=== PATIENT | female | born 1960 | race Caucasian/White ===

== ENCOUNTER → 2016-06-16 08:51 | Outpatient (CLI) | payer MEDICAID ==
[2011-02-10 13:13] VITALS: BMI 26.5
== END | disposition home or self-care (01) ==
LOC: D.RAD 08:00
DX: C34.32 Malignant neoplasm of lower lobe, left bronchus or lung (principal)

== ENCOUNTER → 2016-09-14 05:25 | Day surgery (SDC) | payer MEDICAID ==
[~2016-09-14] VITALS: Ht 154.9 cm; Wt 63.5 kg
[~2016-09-14 05:25] MED LIST: ASPIRIN EC81 M1 PO; CALCIUM 500 +1 EAC3 PO; DECADRON4 MG PO; FISH OIL 1,0001 CA1 PO; FOLIC ACID0.8 MG PO; LIDODERM 5 %1 PATCH TRANSDERM; MIRAPEX0.5 MG PO; MULTIPLE VITAMI1 TA1 PO; NYSTATIN ORAL SU5 ML PO; OXYCODONE HCL10 MG PO; PRILOSEC10 M1 PO; VALIUM5 MG PO; VITAMIN B-121000 MCG PO; VITAMIN D31000 UNIT PO; VITAMIN E1000 UNI1 PO
[2016-09-14 06:36] LABS: BASOPHILS 0.1 % (0-2); EOSINOPHILS 0 % (0-7); HEMATOCRIT 42.5 % (36.0-48.0); HEMOGLOBIN 14.7 g/dL (12-16); IMMATURE GRANULOCYTES 4.8 % (0-5); LYMPHOCYTES 17.2 % (15-50); MCH 30.9 pg (26.0-34.0); MCHC 34.6 g/dL (31.0-37.0); MCV 89.5 fL (80.0-100.0); MEAN PLATELET VOLUME 10.5 fL (7.4-10.4); MONOCYTES 6.2 % (2-11); NEUTROPHILS 71.7 % (40-80); RBC 4.75 10x6/uL (4.00-5.40); RDW 12.7 % (11.5-14.5); WBC 14.9 10x3/uL (4.8-10.8)
[2016-09-14 06:37] LABS: PLATELET COUNT 252 10x3/uL (130-400)
[2016-09-14 06:45] LABS: CALC OSMOLALITY 285 mosm/kg (275-300); CALCIUM 8.7 mg/dL (8.5-10.1); CARBON DIOXIDE 28.2 mmol/L (21.0-32.0); CHLORIDE - SERUM 102 mmol/L (98-107); CREATININE - SERUM 0.8 mg/dL (0.6-1.3); GLUCOSE 122 mg/dL (74-106); POTASSIUM - SERUM 5.2 mmol/L (3.5-5.1); SODIUM 139 mmol/L (136-145); UREA NITROGEN 33 mg/dL (7-18); eGFR NON AFRICAN AMERICAN 78 mL/min (90-120)
[2016-09-14 06:57] LABS: INR 2.87 (0.85-1.17); PROTIME 30.3 SECONDS (11.6-15.0)
[2016-09-14 06:58] LABS: APTT 20.4 SECONDS (22.8-39.4)
[2016-09-14 07:02] VITALS: BP 114/74; Ht 154.9 cm; Wt 63.5 kg
--- NOTE | 2016-09-14 11:25 | NUR ---
NOTIFIED ANETHESIA REGARDING ELEVATED BLOOD PRESSURE. GIVEN VERBAL PER DR. HALE TO GIVEN HYDRALAZINE 5MG EVERY FIVE MINUTES UP TO 20MG.
--- NOTE | 2016-09-14 12:56 | NUR ---
1250-PT. LEFT, ESCORTED VIA WHEELCHAIR TO PERSONAL CAR, LEFT WITH NEIGHBOR DRIVING.
--- NOTE | 2016-09-18 15:46 | OP ---
PATIENT NAME: LEILANI OLIVAREZ MEDICAL RECORD: [id number] :58 LOCATION:[facility] ADMISSION DATE: SURGEON: TETO EID MD DATE OF OPERATION: 09/14/2016 PREOPERATIVE DIAGNOSIS: Brain cancer. POSTOPERATIVE DIAGNOSIS: Brain cancer. PROCEDURE: 1. Placement of left infraclavicular PowerPort under fluoroscopic guidance via a cephalic vein cutdown. 2. Immediate surgeon interpretation of the fluoroscopic images. SURGEON: Teto Eid M.D. EAR MACHINE OPERATOR: None. BLOOD LOSS: Minimal. ANESTHESIA: General. COMPLICATIONS: None. The risks, possible complications and alternatives to procedure were explained to the patient. She elects to proceed. No radiologist was present for this procedure. Static fluoroscopic images were obtained and placed in the patient's chart. The surgeon interpretation of the fluoroscopic images is dictated within the body of this operative note. OPERATIVE COURSE: The patient was conveyed to the operating room electively on 09/14/16. General anesthesia was induced by the anesthesia staff. The left chest was sterilely prepped and draped. A transverse incision was accomplished inferior to the left clavicle. Sharp dissection was carried down to the level of the pectoralis fascia. A subcutaneous pocket was created bluntly in caudad direction. I then excised some of the subcutaneous adipose tissue from beneath the flap in order to allow for easier access of the port. I dissected in the deltopectoral groove. A cephalic vein was identified. Two ties were placed on the cephalic vein laterally. A loose tie was placed medially. A small venotomy was accomplished. Utilizing the vein pick I then advanced the PowerPort catheter. Under fluoroscopy, the PowerPort catheter was advanced to the cavoatrial junction. The catheter was shortened. It was attached to the PowerPort. The locking device was firmly engaged. The medial tie was tied down. A secondary tie was placed around the catheter medially. The cephalic vein was divided between the sets of ties. The port was placed in the subcutaneous pocket. It was sutured with 3-point fixation to the underlying pectoralis fascia with 3-0 Prolenes. I accessed the port. It accessed easily. It aspirated dark, nonpulsatile blood and also flushed easily as well. I irrigated in the port pocket. The subdermis was approximated with interrupted 3-0 Vicryls. The skin was approximated with a running intracuticular 3-0 Vicryl. Benzoin and Steri-Strips were applied. The patient was then extubated and conveyed to post-anesthesia care unit where OPERATIVE REPORT [id number] JUANISLEILANI IRENE she was in stable condition. She will be dismissed home on hydrocodone for pain. TRANSINT:[id number] Voice Confirmation ID: [id number] DOCUMENT ID: [id number] TETO EID MD at 1546 CC: TORRES CARRIZALES MD and TOVA HARTMAN MD [id number] DICTATION DATE: 09/14/16 1137 BALLET DANCER: 09/14/16 2157 [facility] 09/14/16 [id number] [place] [address]
== END | disposition home or self-care (01) ==
LOC: D.OPS 05:25 → D.PAN 08:00 → D.OPS 08:00
PROVIDERS: Anesthesiology
DX: C71.9 Malignant neoplasm of brain, unspecified (principal); Z01.812 Encounter for preprocedural laboratory examination

== ENCOUNTER 2017-10-11 15:20 | Observation (INO) | payer MEDICAID ==
[~2017-10-11] VITALS: Ht 154.9 cm; Wt 55.0 kg
--- NOTE | ~2017-10-11 | CN ---
PATIENT NAME:LEILANI OLIVAREZ MEDICAL RECORD: [id number] : 58 LOCATION:. D.2126 ADMIT DATE: 10/11/17 ACCOUNT: [id number] CONSULTING PHYSICIAN: RUFINA PEACOCK MD REFERRING PHYSICIAN: LIZA HUMPHREY MD DATE OF CONSULTATION: 10/12/2017 HISTORY OF PRESENT ILLNESS: A 57-year-old female with a family history of coronary artery disease, previous history of smoking, has been having chest tightness, pressure with exertion, suspicious for angina including the patient's mother on wheelchair, walking up inclines, admitted with accelerated angina. We are asked to see her concerning her cardiovascular status. PAST MEDICAL HISTORY: Includes: 1. History of gastroesophageal reflux disease. 2. Chronic pain. MEDICATIONS: Include Nicoderm 21 mg 24 hours, aspirin 81 every day, Valium 5 mg b.i.d. p.r.n., Mirapex 0.5 q.h.s., Ambien 10 q.h.s. p.r.n., oxycodone 5 mg q.i.d. SOCIAL HISTORY: Previous smoker. No set exercise program. Helps take care of mother and father, currently living with the sister. REVIEW OF SYSTEMS: The patient reports easy bruising but reports no swollen glands. The patient reports no fever, no night sweats, no significant weight gain, no significant weight loss. No significant exercise tolerance. The patient reports no dry eyes, no irritation, no vision change. Patient reports no difficulty hearing and no ear pain. Patient reports no frequent nose bleeds or nose and sinus problems. Patient reports on arm pain on exertion. No shortness of breath while lying down. No history of heart murmur. Patient reports no cough, no wheezing or coughing up blood. Patient reports no abdominal pain, no vomiting. Normal appetite. No diarrhea and not vomiting blood. No nausea and no constipation. Patient reports no incontinence. No difficulty urinating. No hematuria. No increased frequency. Patient reports no muscle aches. No weakness, no arthralgias, no back pain. No swelling of the extremities. Patient reports no abnormal mole, no jaundice, no rashes. Reports no loss of consciousness. No weakness and no numbness. No seizures, dizziness, or headaches. The patient reports no depression, no sleep disturbance, feeling safe in a relationship and no alcohol abuse. Patient reports on fatigue. Reports no runny nose or sinus pressure. No itching, no hives, and no frequent sneezing. PHYSICAL EXAMINATION: GENERAL: Pleasant female in no acute distress, appears stated age. VITAL SIGNS: Blood pressure 174/74, pulse 80 and regular. HEENT: Normocephalic, atraumatic. NECK: No bruits noted. HEART: Regular with I-II/ systolic ejection murmur. LUNGS: Good air excursion. ABDOMEN: Soft, nontender. EXTREMITIES: Pulses are well preserved, 2+ with no edema. NEUROLOGIC: Grossly intact. DIAGNOSTIC DATA: ECG without acute changes. CONSULT REPORT [id number] LEILANI OLIVAREZ IMPRESSION: Accelerated angina. PLAN: Angiography intervention based on above. TRANSINT:[id number] Voice Confirmation ID: [id number] DOCUMENT ID: [id number] RUFINA PEACOCK MD at 1449 CC: [id number] DICTATION DATE: 10/12/17 1051 PRESCHOOL ADVISER: 10/12/17 1137 DIS IN 10/12/17 [id number] [place] [address]
--- NOTE | ~2017-10-11 | OP ---
PATIENT NAME: LEILANI OLIVAREZ MEDICAL RECORD: [id number] :58 LOCATION:D.M2 D.2126 ADMISSION DATE:10/11/17 SURGEON: RUFINA PEACOCK MD DATE OF OPERATION: 10/12/2017 PROCEDURE: Left heart catheterization, selective coronary angiography, right femoral artery approach. CATHETERS: A 5-Micronesian sheath, 5/4 left and right Simran, 5/4 pig. The procedure was well tolerated. The patient was returned to [facility]. Sheath removed. ExoSeal device placed. FINDINGS: Left ventriculography in 30-degree RODRIGUEZ view: Normal wall motion, normal systolic function. CORONARY ANATOMY: LEFT MAIN: Left main is free of disease. LAD: Free of disease in the diagonal system. CIRCUMFLEX: Free of disease in the marginal system. RIGHT CORONARY ARTERY: Dominant artery, gives rise to PDA, free of disease. IMPRESSION: Normal LV systolic function. Normal coronary anatomy. TRANSINT:[id number] Voice Confirmation ID: [id number] DOCUMENT ID: [id number] RUFINA PEACOCK MD at 1449 CC: [id number] DICTATION DATE: 10/12/17 1052 OFFICE CORRESPONDENT: 10/12/17 1231 DIS IN 10/12/17 [facility] [address] [place] [address]
--- NOTE | ~2017-10-11 | HEMODYNAMI ---
PATIENT:LEILANI OLIVAREZ MEDICAL RECORD: [id number] : 58 LOCATION:[address] ADMISSION DATE: 10/11/17 Generatedon:10/12/201710:43 Patient name: LEILANI OLIVAREZ Patient #: [id number] SSN: : 1960 Date of study: 10/12/2017 Page: Of Hemodynamic Procedure Report Patient Data Patient Demographics Procedure consent was obtained First Name: LEILANI Gender: Female Last Name: JUANIS : 1960 [facility] Initial: BONILLA Age: 57 year(s) Patient #: [id number] Race: Unknown Additional ID: [id number] Contact details Address: [address] [place] [address] State: [place] City: [place] Zip code: [address] Admission Admission Data Admission Date: 10/11/2017 Admission Time: 20:04 Admit Source: Other Room #: D.2126 Lab Results Lab Result Date: 10/12/2017 Lab Result Time: 4:30 Biochemistry Name Units Result Min Max BUN mg/dl 22 --(----)-* 7 18 Creatinine mg/dl 0.8 --(-*--)-- 0.6 1.3 CBC Name Units Result Min Max Hematocrit % 38.2 *-(----)-- 42 54 Hemoglobin g/dl 12.8 -*(----)-- 13.5 17.5 Procedure Procedure Types Cath Procedure Diagnostic Procedure [facility] w/Coronaries Procedure Description Procedure Date Procedure Date: 10/12/2017 Procedure Start Time: 10:30 Procedure End Time: 10:38 Procedure Staff Name Function Reji Cespedes MD Performing Physician Harris Trinidad RT Monitor Eris Amos RT Scrub Mehul Rudd RN Nurse Procedure Data Cath Procedure Fluoroscopy Diagnostic fluoroscopy Total fluoroscopy Time: 1.2 time: 1.2 min min Diagnostic fluoroscopy Total fluoroscopy dose: 272 dose: 272 mGy mGy Contrast Material Contrast Material Type Amount (ml) Isovue 300 65 Entry Location Entry Primary Successful Side Size Upsize Upsize Entry Closure Succes sful Closure Location (Fr) 1 (Fr) 2 (Fr) Remarks Device Remarks Femoral Right 5 Fr Exoseal artery Estimated blood loss: 10 ml Diagnostic catheters Device Type Used For End Catheter Placement MULTIPACK JL 4.0 5Fr Procedure catheter MULTIPACK 3DRC 5Fr Procedure catheter MULTIPACK Pigtail 5 Fr Procedure catheter Procedure Complications No complications Procedure Medications Medication Administration Route Dosage Oxygen etCO2 Nasal cannula 2 l/min Lidocaine 2% added to field 20 Heparin Flush Bag added to field 2 bags (1000units/500ml NS) 0.9% NaCl I.V. 100 ml/hr Versed I.V. 2 mg Fentanyl I.V. 100 mcg Versed I.V. 1 mg Fentanyl I.V. 50 mcg Versed I.V. 1 mg Hemodynamics Rest HGB: 12.8 (g/dl) Heart Rate: 86 (bpm) Pressure Samples Time Site Value (mmHg) Purpose Heart Use Rate(bpm) 10:35 LV 103/8,7 Snapshot 83 Gradients Valve Time Site Site Mean SEP/DFP Peak To Heart Use 1 2 (mmHg) (sec/min) Peak Rate (mmHg) (bpm) Aortic 10:35 LV AO 82 Snapshots Pre Cath Intra NCS Post Cath Vital Signs Time Heart Resp SPO2 etCO2 NIBP (mmHg) Rhythm Pain Sedation Rate (ipm) (%) (mmHg) Status Level (bpm) 10:15:00 85 14 100 14.9 132/75(101) NSR 0 (11) 10(A) , No pain 10:19:12 83 11 100 15.7 111/72(99) NSR 0 (11) 10(A) , No pain 10:23:16 80 16 100 32.2 113/71(94) NSR 0 (11) 10(A) , No pain 10:27:20 70 18 100 35.2 113/71(90) NSR 0 (11) 10(A) , No pain 10:31:27 73 13 99 17.2 100/62(78) NSR 0 (11) 9(A) , No pain 10:35:27 79 24 97 0 98/72(91) NSR 0 (11) 9(A) , No pain 10:41:40 84 29 98 28.4 107/72(91) NSR 0 (11) 10(A) , No pain Medications Time Medication Route Dose Verified Delivered Reason Notes Eff ectiveness by by 10:22:13 Oxygen etCO2 2 Reji Buffie used for Nasal l/min Coy Rudd horseradish maker cannula 10:22:19 Lidocaine 2% added 20ml Reji Reji for local to vial [facility] anesthetic field MD PERALTA 10:22:26 Heparin Flush added 2 Reji Reji used for Bag to bags [facility] procedure (1000units/500ml field MD PERALTA NS) 10:22:33 0.9% NaCl I.V. 100 Reji Buffie Per ml/hr Phoenix Rudd RN physician 10:28:07 Versed I.V. 2 mg Reji Buffie for Coy Rudd RN sedation 10:28:13 Fentanyl I.V. 100 Reji Buffie for mcg Coy Rudd RN sedation 10:31:20 Versed I.V. 1 mg Reji Buffie for Coy Rudd RN sedation 10:31:23 Fentanyl I.V. 50 Reji Buffie for mcg Coy Rudd RN sedation 10:34:53 Versed I.V. 1 mg Reji Buffie for [facility] RN sedation Procedure Log Time Note 9:48:36 Informed consent obtained and on chart 9:48:39 Admit Source: Other 9:48:52 Diagnostic Cath status Elective 9:48:54 Eris Amos RT(R) sent for patient. Start room use. 9:48:54 Time tracking: Regular hours (M-F 7:00 - 5:00) 9:48:57 Plan of Care:Hemodynamics will remain stable., Cardiac rhythm will remain stable., Comfort level will be maintained., Respiratory function will remain adequate., Patient/ family verbilizes understanding of procedure., Procedure tolerated without complication., Recovers from procedure without complications.. 9:49:10 H&P Date Dictated: 10/11/2017 Within 30 days and on chart.. 9:49:38 Lab Result : BUN 22 mg/dl 9:49:38 Lab Result : Creatinine 0.8 mg/dl 9:49:38 Lab Result : Hemoglobin 12.8 g/dl 9:49:38 Lab Result : Hematocrit 38.2 % 9:49:40 Lab results completed and on chart. 10:08:44 Patient received from PCU to CCL 2 Alert and oriented. Tansferred to table in Supine position. 10:13:53 Warm blankets applied, and marge hugger turned on for patient comfort. 10:13:53 Correct patient and procedure confirmed by team. 10:13:54 ECG and BP/O2 sat monitors applied to patient. 10:13:55 Vital chart was started 10:13:56 Baseline sample Acquired. 10:13:59 Rhythm: sinus rhythm 10:14:01 Full Disclosure recording started 10:14:03 Pre-procedure instructions explained to patient. 10:14:04 Pre-op teaching completed and patient verbalized understanding. 10:14:07 Family unavailable. 10:14:08 Patient NPO since Midnight. 10:19:34 Is the patient allergic to Iodine/contrast media? No. 10:19:36 Is patient on blood thinner?No 10:19:40 Patient diabetic? No. 10:19:44 Previous problem with sedation/anesthesia? No ? 10:19:47 Snore? Yes 10:19:49 Sleep apnea? No 10:19:50 Deviated septum? No 10:19:51 Opens mouth fully? Yes 10:19:52 Sticks out tongue? Yes 10:19:54 Airway obstruction? 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 10:19:57 Dentures? No ? 10:20:44 Pre procedure: right dorsailis pedis pulse 1+ Palpable, but thready & weak; easily obliterated 10:20:59 Unable to palpate radial pulse. 10:21:02 Patient pain scale 0/10 ?. 10:21:08 IV patent on arrival in port with 0.9% NaCl at [facility]. 10:21:12 Right groin area was prepped with chlora-prep and draped in sterile fashion 10:22:13 Oxygen 2 l/min etCO2 Nasal cannula was administered by Mehul Rudd RN; used for procedure; 10:22:19 Lidocaine 2% 20ml vial added to field was administered by Reji Cespedes MD; for local anesthetic; 10:22:26 Heparin Flush Bag (1000units/500ml NS) 2 bags added to field was administered by Reji Cespedes MD; used for procedure; 10:22:33 0.9% NaCl 100 ml/hr I.V. was administered by Mehul Rudd RN; Per physician; 10:26:23 Alarms reviewed by R. N. 10::24 Sharps counted by scrub and verified by R.N. 10:: --------ALL STOP TIME OUT------ 10::27 Final Timeout: patient, procedure, and site verified with staff and physician. All members of the team are in agreement. 10:26:29 Right groin site verified by team. 10::31 Physical assessment completed. ASA score P 2 - A patient with mild systemic disease as per Reji Cespedes MD. 10:26:35 Sedation plan: IV Moderate Sedation Medication:Versed, Fentanyl 10:28:07 Versed 2 mg I.V. was administered by Mehul Rudd RN; for sedation; 10:28:13 Fentanyl 100 mcg I.V. was administered by Mehul Rudd RN; for sedation; 10:28:31 Use device set Femoral Dx 10:28:34 PERCUTANEOUS ENTRY 19GA needle opened to sterile field. 10:28:35 Tegaderm 4 x 4 (1626W) opened to sterile field. 10:28:36 ACIST Manifold (11094) opened to sterile field. 10:28:37 ACIST Hand Control (36113) opened to sterile field. 10:28:39 ACIST Syringe (39611) opened to sterile field. 10:28:40 Bag Decanter (2002) opened to sterile field. 10:28:40 Medline Cath Pack ([id number]) opened to sterile field. 10:28:41 DIAGNOSTIC WIRE .035 260cm J wire (611131) opened to sterile field. 10:28:42 DIAGNOSTIC Multipack 5Fr catheter set (QU3571) opened to sterile field. 10:28:43 SHEATH Prelude 5Fr 0.035 (ACY-3L-05-035) opened to sterile field. 10:29:14 Procedure started. 10:30:36 Local anesthetic to right femoral artery with Lidocaine 2% by Reji Cespedes MD.INITIAL ACCESS ONLY 10:30:44 Zero performed for pressure channel P1 10:30:56 A 5 Fr sheath was inserted into the Right Femoral artery 10:31:13 A MULTIPACK JL 4.0 5Fr catheter was advanced over the wire and used for Procedure. 10:31:20 Versed 1 mg I.V. was administered by Buffie Rudd RN; for sedation; 10:31:23 Fentanyl 50 mcg I.V. was administered by Mehul Rudd RN; for sedation; 10:31:41 LCA angiography performed. 10:32:15 Catheter removed. 10:32:21 A MULTIPACK 3DRC 5Fr catheter was advanced over the wire and used for Procedure. 10:33:14 RCA angiography performed. 10:34:07 Catheter removed. 10:34:11 A MULTIPACK Pigtail 5 Fr catheter was advanced over the wire and used for Procedure. 10:34:42 EXOSEAL 5Fr (EX500) opened to sterile field. 10:34:53 Versed 1 mg I.V. was administered by Mehul Rudd RN; for sedation; 10:35:28 LV angiography performed. 10:35:29 LV gram done using RODRIGUEZ 10:35:46 EF : 55 % 10:35:53 LV hemodynamics recorded. 10:35:56 Injector settings: Ml/sec: 10, Volume: 20, 10:35:57 Catheter removed. 10:36:06 Sheath removed intact; hemostasis achieved with Exoseal to the Right Femoral artery. 10:36:09 Procedure ended.(Physican Out) 10:36:22 Fluoroscopy time 01.20 minutes. 10:36:26 Fluoroscopy dose: 272 mGy 10:36:26 Flurop Dose total: 272 10:36:39 Contrast amount:Isovue 300 65ml. 10:36:40 Sharps counted by scrub and verified by R.N. 10:37:09 Insertion/operative site no bleeding no hematoma. 10:37:13 Post-op/insertion site Right Femoral artery dressed using a 4 x 4 and Tegaderm. 10:37:14 Post Procedure Pulses reassessed and unchanged 10:37:17 Post-procedure physical assessment completed. ASA score P 2 - A patient with mild systemic disease as per Reji Cespedes MD. 10:37:22 Post procedure rhythm: sinus rhythm 10:37:26 Estimated blood loss: 10 ml 10:37:27 Post procedure instruction explained to patient.Patient verbalizes understanding. 10:37:28 Patient needs reinforcement of post procedure teaching. 10:37:38 Procedure Complication : No complications 10:38:05 Procedure and supply charges have been captured, reviewed, submitted and are correct. 10:38:05 Vital chart was stopped 10:38:07 See physician's report for complete and final results. 10:38:09 Report given to PCU. 10:38:13 Patient transfered to PCU with Bed. 10:38:15 Procedure ended. 10:38:15 Full Disclosure recording stopped 10:40:20 End room use (Document Last) Device Usage Item Name Manufacture Quantity Catalog Number Hospital Part Current M inimal Lot# / Charge Number Stock Stock Serial# Code PERCUTANEOUS Cook Medical 1 [id number] 5 ENTRY 19GA needle Tegaderm 4 x 4 3M 1 1626W [id number] 213575 [id number] 5 (1626W) ACIST Manifold Acist 1 35599 413657 419460 475759 5 (06522) [employer] Inc ACIST Hand Acist 1 02316 988505 408038 504396 5 Control (90036) [employer] Inc ACIST Syringe Acist 1 26632 924127 651179 899452 2 0 (33043) [employer] Bag Decanter Microtek 1 2002S 806907 01039 503714 5 (2001S) Medical Inc. Medline Cath Cardinal 1 [id number] 489325 64039 507009 5 Pack Health ([id number]) DIAGNOSTIC WIRE [facility] O[facility]ar 1 [id number] 571493 986949 211824 3 0 .035 260cm J wire (492115) DIAGNOSTIC Cardinal 1 [id number] 431000 02501 919360 3 0 Multipack 5Fr Health catheter set (LX1222) SHEATH Prelude Merit 1 TPU-2R-71-035 380221 010794 629956 5 5Fr 0.035 Medical (TYR-2A-42-035) MULTIPACK JL Cardinal 1 [id number] 5 4.0 5Fr Health catheter MULTIPACK 3DRC Cardinal 1 455598 5 5Fr catheter Health MULTIPACK Cardinal 1 155136 5 Pigtail 5 Fr Health catheter EXOSEAL 5Fr Cardinal 1 EX500 307908 682923 916042 1 0 (EX500) Health Signature Audit Twain Stage Time Signature Unsigned Intra-Procedure 10/12/2017 Harris Trinidad 10:43:36 AM RT(R) Signatures Monitor : Harris Trinidad RT Signature : Date : Time : [facility] [address] [place] [address]
[2017-10-11 16:35] LABS: HEMATOCRIT 37.2 % (36.0-48.0); HEMOGLOBIN 12.8 g/dL (12-16); MCHC 34.4 g/dL (31.0-37.0); MCV 87.3 fL (80.0-100.0); PLATELET COUNT 220 10x3/uL (130-400); RBC 4.26 10x6/uL (4.00-5.40); RDW 12.6 % (11.5-14.5); WBC 5.9 10x3/uL (4.8-10.8)
[2017-10-11 16:58] LABS: ALBUMIN 3.8 g/dL (3.4-5.0); ALKALINE PHOSPHATASE 127 U/L (46-116); ALT (SGPT) 34 U/L (10-68); BILIRUBIN - TOTAL 0.35 mg/dL (0.2-1.3); CALC OSMOLALITY 280 mosm/kg (275-300); CALCIUM 8.4 mg/dL (8.5-10.1); CARBON DIOXIDE 29.1 mmol/L (21.0-32.0); CHLORIDE - SERUM 105 mmol/L (98-107); CREATININE - SERUM 0.9 mg/dL (0.6-1.3); GLUCOSE 111 mg/dL (74-106); POTASSIUM - SERUM 3.8 mmol/L (3.5-5.1); PROTEIN - SERUM 7.2 g/dL (6.4-8.2); SODIUM 140 mmol/L (136-145); UREA NITROGEN 16 mg/dL (7-18); eGFR NON AFRICAN AMERICAN 68 mL/min (90-120)
[2017-10-11 17:10] LABS: CKMB 0.8 U/L (0.0-3.6); CREATINE KINASE 72 UL (21-215); EOSINOPHILS 1 % (0-7); LYMPHOCYTES 51 % (15-50); MONOCYTES 5 % (2-11); NEUTROPHILS 43 % (40-80); PLATELET ESTIMATE NORMAL; PRO BNP 76 pg/mL (0-125); TEAR DROP CELLS OCC
[2017-10-11 17:11] LABS: TROPONIN-I < 0.017 ng/mL (0.000-0.060)
[2017-10-11] MEDS ORDERED: NICODERM C1 PATCH .3 TRANSDERM (22:24)
[2017-10-11] MEDS ORDERED: AMBIEN10 MG PO (22:24)
[2017-10-11 23:24] LABS: CKMB 0.8 U/L (0.0-3.6); CREATINE KINASE 67 UL (21-215); TROPONIN-I < 0.017 ng/mL (0.000-0.060)
[2017-10-12] VITALS: BP 102/55
[2017-10-12 03:14] VITALS: BP 102/55; Ht 154.9 cm; Wt 55.0 kg
[2017-10-12 04:45] LABS: BASOPHILS 0.2 % (0-2); HEMATOCRIT 38.2 % (36.0-48.0); HEMOGLOBIN 12.8 g/dL (12-16); IMMATURE GRANULOCYTES 0.2 % (0-5); LYMPHOCYTES 63.8 % (15-50); MCH 29.8 pg (26.0-34.0); MCHC 33.5 g/dL (31.0-37.0); MCV 88.8 fL (80.0-100.0); MEAN PLATELET VOLUME 9.9 fL (7.4-10.4); NEUTROPHILS 26.8 % (40-80); PLATELET COUNT 227 10x3/uL (130-400); RDW 12.6 % (11.5-14.5); WBC 6.4 10x3/uL (4.8-10.8)
[2017-10-12 05:19] LABS: CALC OSMOLALITY 283 mosm/kg (275-300); CALCIUM 8.5 mg/dL (8.5-10.1); CARBON DIOXIDE 27.7 mmol/L (21.0-32.0); CHLORIDE - SERUM 107 mmol/L (98-107); CREATININE - SERUM 0.8 mg/dL (0.6-1.3); GLUCOSE 93 mg/dL (74-106); POTASSIUM - SERUM 4.3 mmol/L (3.5-5.1); SODIUM 141 mmol/L (136-145); eGFR NON AFRICAN AMERICAN 78 mL/min (90-120)
[2017-10-12 05:27] LABS: UREA NITROGEN 22 mg/dL (7-18)
[2017-10-12 06:00] VITALS: BP 105/51
[2017-10-12 08:11] VITALS: BP 174/74
[2017-10-12 13:47] VITALS: BP 114/66
== END 2017-10-12 15:49 | disposition home or self-care (01) ==
LOC: D.ER 15:20 → D.EDHOLD 20:04 → D.M2 20:04 → OBSVTIME 10-12 15:20 → D.M2 10-12 15:49
PROVIDERS: Family Medicine
DX: R07.89 Other chest pain (principal); I25.10 Atherosclerotic heart disease of native coronary artery without angina pectoris; Z87.891 Personal history of nicotine dependence; B19.20 Unspecified viral hepatitis C without hepatic coma; K21.9 Gastro-esophageal reflux disease without esophagitis; F41.9 Anxiety disorder, unspecified; Z85.118 Personal history of other malignant neoplasm of bronchus and lung